=== PATIENT | female | born 1975 | race Hispanic/Latino ===

== ENCOUNTER 2019-02-27 08:48 | Inpatient (IN) | payer MEDICARE ==
[2019-02-27 10:27] LABS: Basophils % (Auto) 0.3 % (0.0-1.8); Hematocrit 38.6 % (30.3-42.9); Lymphocytes # (Auto) 1.3 K/mm3 (1.2-5.4); Lymphocytes % (Auto) 11.1 % (13.4-35.0); Mean Corpuscular HGB Conc 34 % (30-34); Mean Corpuscular Volume 90 fl (79-97); Monocytes # (Auto) 0.3 K/mm3 (0.0-0.8); Monocytes % (Auto) 2.6 % (0.0-7.3); Platelet Count 238 K/mm3 (140-440); Red Blood Count 4.29 M/mm3 (3.65-5.03); Red Cell Distribution Width 13.1 % (13.2-15.2)
[2019-02-27] MEDS ORDERED: NACL 0.9% 1000 ML 1,000 ML IV ONE ×3 (10:30→16:06)
[2019-02-27] MEDS ORDERED: CITRATE OF MAGNESIA PO ONE (10:30)
[2019-02-27 10:38] LABS: Creatine Kinase MB 15.9 ng/mL (0.0-4.0)
[2019-02-27 10:39] LABS: Alanine Aminotransferase 41 units/L (7-56); Albumin 4.8 g/dL (3.9-5); BUN/Creatinine Ratio 44; Blood Urea Nitrogen 22 mg/dL (7-17); Calcium 9.1 mg/dL (8.4-10.2); Hemolysis Index 42
--- NOTE | 2019-02-27 10:52 | Emergency Department Report ---
HPI - General Chief Complaint: Altered Mental Status Time Seen by Provider: 02/27/19 10:05 - HPI HPI: 43-year-old female presents to the emergency department with complaint of feeling dizzy and unsteady after 3 days of using cocaine and drinking alcohol. Patient says that she was "clean for a while" but then recently relapsed. She called a friend to come and get her and bring her to the emergency department. She is currently awake and alert. She denies any chest pain, shortness of breath, fever, nausea or vomiting but does complain of some constipation. She has not taken anything else for her symptoms prior to arrival. No recent travel or sick contacts at home. ED Past Medical Hx - Social History Smoking Status: Current Every Day Smoker Substance Use Type: Alcohol ED Review of Systems ROS: Stated complaint: OVERDOSE Other details as noted in HPI Comment: All other systems reviewed and negative Constitutional: denies: chills, fever Eyes: denies: eye pain, vision change ENT: denies: ear pain, throat pain Respiratory: denies: cough, shortness of breath Cardiovascular: denies: chest pain, palpitations Gastrointestinal: constipation. denies: vomiting Genitourinary: denies: dysuria, discharge Musculoskeletal: denies: back pain, arthralgia Skin: denies: rash, lesions Neurological: other (dizziness). denies: headache Physical Exam - Physical Exam Vital Signs: Vital Signs 02/27/19 09:32 Temperature 97.9 F Pulse Rate 72 Respiratory 16 Rate Blood Pressure 119/71 O2 Sat by Pulse 98 Oximetry Physical Exam: GENERAL: The patient is disheveled and drowsy HENT: Normocephalic. Atraumatic. Patient has moist mucous membranes. EYES: Extraocular motions are intact. Pupils equal reactive to light bilaterally. NECK: Supple. Trachea is midline. CHEST/LUNGS: Clear to auscultation. There is no respiratory distress noted. HEART/CARDIOVASCULAR: Regular. There is no tachycardia. There is no murmur. ABDOMEN: Abdomen is soft, nontender. Patient has normal bowel sounds. There is no abdominal distention. SKIN: Skin is warm and dry. NEURO: The patient is drowsy but is easily arousable and once awake she is oriented and alert. Follows all commands. The patient has no focal neurologic deficits. The patient has normal speech. Cranial nerves II through XII grossly intact. MUSCULOSKELETAL: There is no tenderness or deformity. There is no limitation range of motion. There is no evidence of acute injury. ED Course Vital Signs 02/27/19 09:32 Temperature 97.9 F Pulse Rate 72 Respiratory 16 Rate Blood Pressure 119/71 O2 Sat by Pulse 98 Oximetry ED Medical Decision Making - Lab Data Result diagrams: 02/27/19 09:59 02/27/19 09:59 - EKG Data -: EKG Interpreted by Me EKG shows normal: sinus rhythm, axis, intervals, QRS complexes, ST-T waves (t wave inversions to septal leads) Rate: bradycardia (54 bpm) - EKG Data When compared to previous EKG there are: previous EKG unavailable Interpretation: other (sinus bradycardia, t wave inversions to septal leads) - Radiology Data Radiology results: report reviewed, image reviewed interpreted by me: Abdominal x-ray shows increased stool volume and nonspecific bowel gas pattern is no acute process. CT of the head does not show any acute intracranial process including no ischemia, shift, mass, bleeding or skull fracture. - Medical Decision Making This patient presents to the emergency Department with complaints of feeling ill along with some dizziness and/or vertigo after a three-day alcohol and cocaine binge. CT of the head did not show any bleed, shift, mass, ischemia, or any other acute process. Patient's labs are mostly unremarkable except for some signs of dehydration and a urine drug screen positive for cocaine and benzodiazepines. Blood alcohol level, despite her complaint of drinking heavily, was down to 0.02. Patient was given multiple bags of IV fluid resuscitation. She complained of some constipation and an x-ray does show increased stool volume without any other acute process. However the patient refuses the magnesium citrate. Patient was also given a banana bag and some Antivert. She was reevaluated multiple times for multiple hours and says that she is not feeling improved. For this reason the patient will be admitted to the hospital for further evaluation and treatment was excepted for admission by the hospitalist, Dr. Bell. - Differential Diagnosis substance abuse, alcohol/cocaine withdrawal, benign positional vertigo, TIA Critical Care Time: No Critical care attestation.: If time is entered above; I have spent that time in minutes in the direct care of this critically ill patient, excluding procedure time. ED Disposition Clinical Impression: Increased stool volume, Dizziness, Cocaine abuse, History of alcohol abuse, Dehydration Disposition: - OP ADMIT IP TO THIS HOSP Is pt being admited?: Yes Condition: Fair Referrals: SIM VICENTE MD [Primary Care Provider] - 3-5 Days Time of Disposition: 18:36
[2019-02-27] MEDS ORDERED: VITAMIN B-1 100 MG, FOLVITE 1 MG, INFUVITE 10 ML in NACL 0.9% 1000 ML 1,000 ML IV ONE ×2 (11:00→21:15)
--- NOTE | 2019-02-27 11:25 | Cat Scan Report ---
PROCEDURE: CT HEAD/BRAIN WO CON TECHNIQUE: Computerized tomography of the head was performed without contrast material. Coronal and s agittal reformatted images were provided. CT DOSE LENGTH PRODUCT: 928.97 mGy-cm. HISTORY: AMS COMPARISONS: None currently available. FINDINGS: There is no evidence for acute ischemia. There is no hemorrhage. There is no midline shift. There is no hydrocephalus. There is no mass. Age appropriate kinsey-white matter attenuation is noted. There is no calvarial fracture. The temporal bones demonstrate aerated mastoid air cells. The middle ears appear unremarkable. Paranasal sinuses are unremarkable. Globes are intact. IMPRESSION: * No acute intracranial findings. This document is electronically signed by Hank Giron MD., Feb 27 2019 11:23:41 AM ET
--- NOTE | 2019-02-27 15:12 | XRay Report ---
PROCEDURE: XR ABDOMEN 2V TECHNIQUE: Supine and upright AP views of the abdomen are submitted HISTORY: abd pain COMPARISONS: None available FINDINGS: The bowel gas pattern is nonobstructive. There is a large volume of stool throughout the colon, sugge sting constipation. Surgical clips are seen in the right upper quadrant abdomen. There are postsurgic al changes of the lumbar spine. IMPRESSION: Large volume of stool seen throughout the colon, compatible with constipation. This document is electronically signed by Tierra Jerry MD., Feb 27 2019 03:10:09 PM ET
[2019-02-27] MEDS ORDERED: ANTIVERT PO ONE (15:36)
[2019-02-27 16:04] LABS: Bilirubin,Urine NEG (Negative); Blood,Urine NEG (Negative); Color,Urine Yellow (Yellow); Mucus,Urine FEW /HPF; Urobilinogen,Urine < 2.0 mg/dL (<2.0)
[2019-02-27 16:10] LABS: Amphetamine Screen,Urine PRESUMPTIVE NEGATIVE; Cannabinoid Screen,Urine PRESUMPTIVE NEGATIVE; Methadone Screen,Urine PRESUMPTIVE NEGATIVE; Opiate Screen,Urine PRESUMPTIVE NEGATIVE
[2019-02-27 16:28] LABS: Benzodiazepines Screen,Urine PRESUMPTIVE POSITIVE; Cocaine Screen,Urine PRESUMPTIVE POSITIVE
--- NOTE | 2019-02-27 17:09 | History and Physical Report ---
History of Present Illness Chief complaint: confused, History of present illness: 43 YO Female with Nicotine Dependence, PSA presents to ED for evaluation. Pt is confused, tearful, and unable to provide detailed history. Pt history taken from ED staff, and medical record. As per staff, the patient was transported to [facility] via private vehicle by a friend and dropped off. Pt was confused, with unsteady gait. The friend reports that the patient has experienced 3 days of using cocaine and binge drinking alcohol. Pt seen and evaluated in ED and found to have ETOH withdrawl complicated by Encephalopathy. Pt treated with supportive care, IVF resuscitation and initiated on ETOH withdrawl protocol. Pt admitted to medical floor. No prior admission for review. No medication listed at time of admission for reconciliation. No further history obtainable. Past History Past Medical History: other (Polysubstance abuse) Past Surgical History: No surgical history, Other (UTO) Social history: , smoking, alcohol abuse Family history: no significant family history (UTO) Medications and Allergies Allergies Allergy/AdvReac Type Severity Reaction Status Date / Time No Known Allergies Allergy Unverified 02/27/19 09:34 Review of Systems ROS unobtainable: due to mental status Exam - Constitutional Vitals: Temp Pulse Resp BP Pulse Ox 97.9 F 72 18 118/69 98 02/27/19 09:32 02/27/19 13:35 02/27/19 13:35 02/27/19 13:35 02/27/19 13:35 General appearance: Present: mild distress - EENT Eyes: Present: PERRL, miosis ENT: hearing intact, clear oral mucosa - Neck Neck: Present: supple, normal ROM - Respiratory Respiratory effort: normal Respiratory: bilateral: CTA - Cardiovascular Heart Sounds: Present: S1 & S2. Absent: rub, click - Extremities Extremities: pulses symmetrical, No edema Peripheral Pulses: within normal limits - Abdominal General gastrointestinal: Present: soft, non-tender, non-distended, normal bowel sounds Female genitourinary: Present: normal - Integumentary Integumentary: Present: clear, warm, dry - Musculoskeletal Musculoskeletal: generalized weakness - Psychiatric Psychiatric: no appropriate mood/affect, no intact judgment & insight, agitated - Neurologic Neurologic: CNII-XII intact, no focal deficits, moves all extremities, no gait normal Results - Labs CBC & Chem 7: 02/27/19 09:59 02/27/19 09:59 Labs: Abnormal lab results 02/27/19 02/27/19 02/27/19 Range/Units 09:59 09:59 09:59 WBC 11.7 H (4.5-11.0) K/mm3 RDW 13.1 L (13.2-15.2) % Lymph % (Auto) 11.1 L (13.4-35.0) % Seg Neutrophils % 86.0 H (40.0-70.0) % Seg Neutrophils # 10.0 H (1.8-7.7) K/mm3 Chloride 96.6 L (98-107) mmol/L BUN 22 H (7-17) mg/dL Creatinine 0.5 L (0.7-1.2) mg/dL AST 44 H (5-40) units/L Total Creatine Kinase (30-135) units/L CK-MB (CK-2) (0.0-4.0) ng/mL Total Protein 8.9 H (6.3-8.2) g/dL Salicylates < 0.3 L (2.8-20.0) mg/dL Acetaminophen (10.0-30.0) ug/mL 02/27/19 02/27/19 Range/Units 09:59 09:59 WBC (4.5-11.0) K/mm3 RDW (13.2-15.2) % Lymph % (Auto) (13.4-35.0) % Seg Neutrophils % (40.0-70.0) % Seg Neutrophils # (1.8-7.7) K/mm3 Chloride (98-107) mmol/L BUN (7-17) mg/dL Creatinine (0.7-1.2) mg/dL AST (5-40) units/L Total Creatine Kinase 635 H (30-135) units/L CK-MB (CK-2) 15.9 H (0.0-4.0) ng/mL Total Protein (6.3-8.2) g/dL Salicylates (2.8-20.0) mg/dL Acetaminophen < 5.0 L (10.0-30.0) ug/mL Assessment and Plan - Patient Problems (1) Alcohol withdrawal Current Visit: Yes Status: Acute Qualifiers: Complication of substance-induced condition: with perceptual disturbance Qualified Code(s): F10.232 - Alcohol dependence with withdrawal with perceptual disturbance Plan to address problem: CIWA protocol, banana bag, Thiamine, Folic Acid, Multivitamin daily, IVF resuscitation, antiemetic therapy, diet as tolerated. (2) Encephalopathy Current Visit: Yes Status: Acute Plan to address problem: CT head, neuro check, seizure precautions, (3) Nicotine dependence with withdrawal Current Visit: Yes Status: Acute Qualifiers: Nicotine product type: cigarettes Qualified Code(s): F17.213 - Nicotine dependence, cigarettes, with withdrawal Plan to address problem: smoking cessation counseling, supportive care. (4) DVT prophylaxis Current Visit: Yes Status: Acute Plan to address problem: SCD to BLE while in bed.
[2019-02-27] MEDS ORDERED: SODIUM CHLORIDE FLUSH SYRINGE 10 ML IV PRN (17:10)
[2019-02-27] MEDS ORDERED: TYLENOL PO PRN (17:10)
[2019-02-27] MEDS ORDERED: PROVENTIL IH PRN (17:10)
[2019-02-27] MEDS: ZOFRAN IV PRN (23:00)
[2019-02-27] MEDS: ATIVAN IV PRN (23:00)
[2019-02-27] MEDS: SODIUM CHLORIDE FLUSH SYRINGE 10 ML IV SCH (23:05)
[2019-02-28] MEDS: ATIVAN IV PRN ×6 (00:30→21:33)
[2019-02-28] MEDS: NACL 0.45% 1000 ML 1,000 ML IV SCH ×2 (02:52→13:32)
[2019-02-28 05:10] LABS: Basophils # (Auto) 0.1 K/mm3 (0.0-0.1); Basophils % (Auto) 0.9 % (0.0-1.8); Lymphocytes # (Auto) 2.4 K/mm3 (1.2-5.4); Lymphocytes % (Auto) 16.7 % (13.4-35.0); Mean Corpuscular HGB Conc 34 % (30-34); Mean Corpuscular Volume 89 fl (79-97); Monocytes # (Auto) 1.1 K/mm3 (0.0-0.8); Monocytes % (Auto) 7.5 % (0.0-7.3); Platelet Count 237 K/mm3 (140-440); Red Blood Count 4.25 M/mm3 (3.65-5.03); Red Cell Distribution Width 12.7 % (13.2-15.2)
[2019-02-28 06:37] LABS: Albumin 3.6 g/dL (3.9-5); BUN/Creatinine Ratio 38; Blood Urea Nitrogen 15 mg/dL (7-17); Hemolysis Index 112
[2019-02-28 07:01] LABS: Alanine Aminotransferase TNR units/L (7-56); Calcium TNR mg/dL (8.4-10.2)
[2019-02-28 08:07] LABS: Alanine Aminotransferase 27 units/L (7-56); Albumin 3.7 g/dL (3.9-5); BUN/Creatinine Ratio 35; Blood Urea Nitrogen 14 mg/dL (7-17); Calcium 7.3 mg/dL (8.4-10.2); Hemolysis Index 5
[2019-02-28] MEDS: ZOFRAN IV PRN ×2 (09:30→17:23)
--- NOTE | 2019-02-28 11:18 | Progress Note ---
Assessment and Plan / Alcohol intoxication Was drinking alcohol and using cocaine for 3 days cont CIWA protocol for possible withdrawal, s/p banana bag, cont Thiamine, Folic Acid, Multivitamin daily, IVF resuscitation, antiemetic therapy, diet as tolerated. /Acute toxic Encephalopathy, resolved likely from alcohol and substance abuse no acute findings on CT head, cont neuro check, seizure precautions, /Tobacco abuse smoking cessation counseling, supportive care. /Substance abuse - counseled, psych consult /Depression, denies SI - wait for psych recommendation / DVT prophylaxis SCD to BLE while in bed. Subjective Date of service: 02/28/19 Interval history: patient seen and examined denies any SI, or depression states that she relapsed tolerating diet Objective - Constitutional Vitals: Vital Signs - 12hr 02/28/19 02/28/19 02/28/19 01:59 06:04 10:15 Temperature 97.7 F 98.0 F Pulse Rate 66 72 Respiratory 16 16 Rate Blood Pressure 121/53 109/58 O2 Sat by Pulse 98 94 97 Oximetry General appearance: Present: well-nourished, other (lathergic) - EENT Eyes: PERRL, EOM intact ENT: hearing intact, clear oral mucosa Ears: bilateral: normal - Neck Neck: supple, normal ROM - Respiratory Respiratory effort: normal Respiratory: bilateral: CTA - Cardiovascular Rhythm: regular Heart Sounds: Present: S1 & S2. Absent: gallop, rub Extremities: pulses intact, No edema, normal color, Full ROM - Gastrointestinal General gastrointestinal: Present: soft, non-tender, non-distended, normal bowel sounds - Integumentary Integumentary: clear, warm, dry - Musculoskeletal Musculoskeletal: 1, strength equal bilaterally - Neurologic Neurologic: moves all extremities - Psychiatric Psychiatric: memory intact, appropriate mood/affect, intact judgment & insight - Labs CBC & Chem 7: 02/28/19 04:48 02/28/19 07:00 Labs: Abnormal lab results 02/28/19 02/28/19 02/28/19 Range/Units 04:48 04:48 07:00 WBC 14.6 H (4.5-11.0) K/mm3 RDW 12.7 L (13.2-15.2) % Bracken % (Auto) 7.5 H (0.0-7.3) % Bracken # 1.1 H (0.0-0.8) K/mm3 Seg Neutrophils % 74.9 H (40.0-70.0) % Seg Neutrophils # 11.0 H (1.8-7.7) K/mm3 Sodium 136 L 136 L (137-145) mmol/L Carbon Dioxide 19 L (22-30) mmol/L Creatinine 0.4 L 0.4 L (0.7-1.2) mg/dL Calcium 7.3 L D (8.4-10.2) mg/dL Albumin 3.6 L 3.7 L (3.9-5) g/dL
[2019-02-28] MEDS ORDERED: DULCOLAX PO ONE (12:00)
[2019-02-28] MEDS: FOLVITE PO SCH (13:32)
[2019-02-28] MEDS: COLACE PO SCH ×2 (13:32→21:33)
[2019-02-28] MEDS: THERAGRAN Tab PO SCH (13:32)
[2019-02-28] MEDS: MIRALAX 3350 PO SCH (13:33)
[2019-02-28] MEDS: VITAMIN B-1 PO SCH (13:33)
[2019-02-28] MEDS: SODIUM CHLORIDE FLUSH SYRINGE 10 ML IV SCH ×2 (13:33→21:33)
[2019-02-28] MEDS ORDERED: DULCOLAX PO PRN (14:00)
[2019-03-01] MEDS: ATIVAN IV PRN (02:24)
[2019-03-01] MEDS: NACL 0.45% 1000 ML 1,000 ML IV SCH (09:06)
[2019-03-01] MEDS: MIRALAX 3350 PO SCH (09:11)
[2019-03-01] MEDS: COLACE PO SCH (09:12)
[2019-03-01] MEDS: VITAMIN B-1 PO SCH (09:23)
[2019-03-01] MEDS: FOLVITE PO SCH (09:23)
[2019-03-01] MEDS: ZOFRAN IV PRN (09:23)
[2019-03-01] MEDS: THERAGRAN Tab PO SCH (09:23)
[2019-03-01] MEDS: SODIUM CHLORIDE FLUSH SYRINGE 10 ML IV SCH (09:35)
--- NOTE | 2019-03-01 12:26 | Consultation ---
History of Present Illness - Reason for Consult Consult date: 03/01/19 Reason for consult: Mental Health Evaluation Requesting physician: ALISON LAWLER - Chief Complaint Chief complaint: "I made a terrible mistake" - History of Present Psychiatric Illness 43 y.o. white female who presented to the ER after binging on cocaine for 3 days. Psychiatry was consulted to see patient for possible overdose. Today the patient is calm and cooperative during the assessment. She stated that she experience x 2 and decided to get "high and drink (etoh)" with a close friend. She stated, "I over did it." She stated being "clean" for 3 years from cocaine prior to current relapse. She denies that she was trying to kill herself. She denies a previous suicide attempts when asked. She acknowledged a hx of depression and takes Wellbutrin daily. She stated that she has a psychiatrist, Dr. Chen. She is adamant that she made a "terrible" mistake by using cocaine. She denies SI/HI's and AVH's. She denies erratic sleep and a poor appetite. She stated that she usually drink alcohol (etoh) socially. Medications and Allergies Allergies Allergy/AdvReac Type Severity Reaction Status Date / Time No Known Allergies Allergy Unverified 02/27/19 09:34 Home Medications Medication Instructions Recorded Confirmed Last Taken Type Folic Acid [Folvite] 1 mg PO QDAY #14 tablet 03/01/19 Unknown Rx Thiamine [Vitamin B-1] 100 mg PO QDAY #14 tablet 03/01/19 Unknown Rx buPROPion [Wellbutrin] 150 mg PO DAILY #20 tablet 03/01/19 Unknown Rx Active Meds: Active Medications Acetaminophen (Tylenol) 650 mg PO Q4H PRN PRN Reason: Pain MILD(1-3)/Fever >100.5/GONZALEZ Last Admin: 02/28/19 13:32 Dose: 650 mg Documented by: Albuterol (Proventil) 2.5 mg IH Q4H PRN PRN Reason: Shortness Of Breath Bisacodyl (Dulcolax) 10 mg PO QDAY PRN PRN Reason: Constipation Docusate Sodium (Colace) 100 mg PO BID [facility] Last Admin: 03/01/19 09:12 Dose: Not Given Documented by: Folic Acid (Folvite) 1 mg PO QDAY [facility] Last Admin: 03/01/19 09:23 Dose: 1 mg Documented by: Sodium Chloride (Nacl 0.45% 1000 Ml) 1,000 mls @ 125 mls/hr IV DIRECT [facility] Last Admin: 03/01/19 09:06 Dose: 125 mls/hr Documented by: Lorazepam (Ativan) 2 mg IV Q1H PRN PRN Reason: CIWA-Ar 8-15 Last Admin: 03/01/19 02:24 Dose: 2 mg Documented by: Multivitamins (Theragran Tab) 1 each PO QDAY [facility] Last Admin: 03/01/19 09:23 Dose: 1 each Documented by: Ondansetron HCl (Zofran) 4 mg IV Q8H PRN PRN Reason: Nausea And Vomiting Last Admin: 03/01/19 09:23 Dose: 4 mg Documented by: Polyethylene Glycol (Miralax 3350) 17 gm PO QDAY [facility] Last Admin: 03/01/19 09:11 Dose: Not Given Documented by: Sodium Chloride (Sodium Chloride Flush Syringe 10 Ml) 10 ml IV BID [facility] Last Admin: 03/01/19 09:35 Dose: Not Given Documented by: Sodium Chloride (Sodium Chloride Flush Syringe 10 Ml) 10 ml IV PRN PRN PRN Reason: LINE FLUSH Thiamine HCl (Vitamin B-1) 100 mg PO QDAY [facility] Last Admin: 03/01/19 09:23 Dose: 100 mg Documented by: Past psychiatric history - Past Medical History Past Medical History: No medical history Past Surgical History: No surgical history - past Psychiatric treatment and history psychiatric treatment history: Hx of depression and substance abuse. Denies a fam psy hx. - Social History Social history: lives with family Mental Status Exam - Vital signs Last Vital Signs Temp 98.2 F 03/01/19 06:22 Pulse 76 03/01/19 06:22 Resp 20 03/01/19 06:22 BP 124/81 03/01/19 06:22 Pulse Ox 95 03/01/19 09:46 - Exam Narrative exam: MSE: Appearance: calm, cooperative Behavior: regular eye contact Speech: regular rate and tone Mood: "okay" Affect: congruent to mood Thought Process: linear Thought Content: denies SI/HI's and AVH's Motor Activity: ambulatory Cognition: A/O x3 Insight: fair Judgment: fair Results Result Diagrams: 02/28/19 04:48 02/28/19 07:00 All other labs normal. Assessment and Plan Assessment and plan: Impression: Hx of Depression. Substance Use DO (cocaine). Unintentional Overdose. Today the patient is calm and cooperative during the assessment. The patient is no threat to self. No acute withdrawals noted (etoh). DDx: R/O Alcohol Use DO Recommendation/Plan: Start home medication Wellbutrin 150 mg PO daily for depression. Discussed possible suicidality/medication induced pat with the patient reference Wellbutrin, she verbalized understanding. Will follow up with the patient in 24 hours. Dispo: The patient can follow up with her psychiatrist Dr. Chen for outpatient therapy. Staffed with Dr Khadar Tucker.
--- NOTE | 2019-03-01 14:13 | Discharge Summary ---
Providers - Providers Date of Admission: 02/27/19 17:10 Date of discharge: 03/01/19 Attending physician: ALISON LAWLER 02/27/19 20:29 Consult to Case Management [CONS] Routine Services Needed at Discharge: Hearing Aid Repairer Notified:: copy given to CM Additional Physician Instructions: Substance Abuse counseling, Alcoholics Anonymous information. 02/28/19 12:05 Consult to Mental Health [CONS] Routine Reason For Exam: drug overdose Place consult to:: psych Notified:: LAURA Phone number called:: [phone] Was contact made?: Yes If yes, spoke with:: LAURA Time called:: 12:39 [facility] Condition: Fair Pertinent studies: CT head - unremarkable Hospital course: 43 YO Female with Nicotine Dependence, PSA presents to ED by a friend and dropped off. Pt was confused, tearful, and unable to provide detailed history, with unsteady gait. The friend reports that the patient has experienced 3 days of using cocaine and binge drinking alcohol. Pt seen and evaluated in ED and found to have ETOH intoxication complicated by Encephalopathy. Pt admitted to medical floor for further evaluation and management. Discharge diagnosis: / Alcohol intoxication, resolved Patient was drinking alcohol and using cocaine for 3 days placed on CIWA protocol to avoid possible withdrawal, s/p banana bag, given Thiamine, Folic Acid, Multivitamin daily, IVF resuscitation, antiemetic therapy, diet as tolerated. /Acute toxic Encephalopathy, resolved likely from alcohol and substance abuse no acute findings on CT head, monitored with neuro check with seizure precautions, /Tobacco abuse smoking cessation counseling done, /Substance abuse - counseled, psych consulted /Depression, denies SI - will do outpt psych followup / DVT prophylaxis SCD to BLE while in bed. Disposition: DC-01 TO HOME OR SELFCARE Time spent for discharge: 34 monites Core Measure Documentation - Palliative Care Palliative Care/ Comfort Measures: Not Applicable - Core Measures Any of the following diagnoses?: none Exam - Physical Exam Narrative exam: General appearance: Present: well-nourished, NAD - EENT Eyes: PERRL, EOM intact ENT: hearing intact, clear oral mucosa Ears: bilateral: normal - Neck Neck: supple, normal ROM - Respiratory Respiratory effort: normal Respiratory: bilateral: CTA - Cardiovascular Rhythm: regular Heart Sounds: Present: S1 & S2. Absent: gallop, rub Extremities: pulses intact, No edema, normal color, Full ROM - Gastrointestinal General gastrointestinal: Present: soft, non-tender, non-distended, normal bowel sounds - Integumentary Integumentary: clear, warm, dry - Musculoskeletal Musculoskeletal: 1, strength equal bilaterally - Neurologic Neurologic: moves all extremities - Psychiatric Psychiatric: memory intact, appropriate mood/affect, intact judgment & insight - Constitutional Vitals: Temp Pulse Resp BP Pulse Ox 98.2 F 76 20 124/81 95 03/01/19 06:22 03/01/19 06:22 03/01/19 06:22 03/01/19 06:22 03/01/19 09:46 Plan Activity: advance as tolerated Weight Bearing Status: Weight Bear as Tolerated Diet: regular Additional Instructions: F/u with psychiatrist outpt Follow up with: SIM VICENTE MD [Primary Care Provider] - 3-5 Days Prescriptions: Folic Acid [Folvite] 1 mg PO QDAY #14 tablet Thiamine [Vitamin B-1] 100 mg PO QDAY #14 tablet buPROPion [Wellbutrin] 150 mg PO DAILY #20 tablet
[2019-03-01 14:30] VITALS: BP 132/79
[2019-03-01] MEDS ORDERED: WELLBUTRIN PO SCH (14:30)
--- NOTE | 2019-03-02 12:55 | Progress Note ---
Subjective - Reason for Consult Consult date: 03/02/19 Reason for consult: Psychiatric Follow-up Evaluation Mental Status Exam - Vital signs Last Vital Signs Temp 98.2 F 03/01/19 06:22 Pulse 76 03/01/19 06:22 Resp 20 03/01/19 06:22 BP 132/79 03/01/19 12:38 Pulse Ox 95 03/01/19 09:46
== END 2019-03-01 15:40 | disposition home or self-care (01) | DRG 917 ==
LOC: ED 08:48 → 3A 17:10
PROVIDERS: ADMIT Internal Medicine; ATTEND Internal Medicine
DX: T40.5X1A Poisoning by cocaine, accidental (unintentional), initial encounter (principal); G92 Toxic encephalopathy; F17.213 Nicotine dependence, cigarettes, with withdrawal; F10.19 Alcohol abuse with unspecified alcohol-induced disorder; F14.19 Cocaine abuse with unspecified cocaine-induced disorder; E86.0 Dehydration; F32.9 Major depressive disorder, single episode, unspecified; Y90.0 Blood alcohol level of less than 20 mg/100 ml; Y92.098 Other place in other non-institutional residence as the place of occurrence of the external cause; Z71.6 Tobacco abuse counseling
CPT/HCPCS: 36415; 70450; 74019; 80053; 80307; 80320; 81001; 82140; 82550; 82553; 84484; 84703; 85025; 93005; 93010; 99406; G0378; G0480; J2060; J2405; J3411; J7030